=== PATIENT | female | born 1955 | race Caucasian/White ===

== ENCOUNTER 2019-07-08 11:10 | Emergency (ER) | payer MEDICAID, OTHER ==
[~2019-07-08] VITALS: Ht 154.9 cm; Wt 45.4 kg
[~2019-07-08 11:10] MED LIST: LEVAQUIN500 MG ORAL; METHADONE HCL5 MG PO; NKM
[2019-07-08 11:18] VITALS: BP 109/71
[2019-07-08] MEDS ORDERED: CLINDAMYCIN HC300 MG ORAL (11:43)
[2019-07-08 11:50] VITALS: BP 115/76
--- NOTE | 2019-07-08 11:55 | Emergency Room Report ---
History of Present Illness General Chief Complaint: Skin Rash/Abscess Source: Patient Present Illness HPI Disclaimer: Please note that this report is being documented using [employer]AG[employer] technology. This can lead to erroneous entry secondary to incorrect interpretation by the dictating instrument. HPI: 64-year-old female history of heroin abuse presents for left upper extremity swelling and pain. She states she injected heroin recently to the area and developed an abscess which drained last night. Her pain is improved since drainage but still complaining of pain and mild redness. Versus no fevers no nausea vomiting or shortness of breath. No other complaints at this time. PMH: Patient denies PSH: Reviewed Social Hx: Patient takes methadone and uses heroin. Allergies: Coded Allergies: No Known Allergies (Unverified , 01/24/14) COVID-19 Screening Contact w/high risk pt: No Recent Travel to affected area: No Experienced COVID-19 symptoms?: No Patient History Last Menstrual Period: na Nursing Documentation-PMH Past Medical History: No Stated History Hx Cardiac Problems: No Hx Diabetes: No - States MD told her shes borberline 2 years ago Hx Cancer: Yes - Uterine CA at 42 yrs old Hx Gastrointestinal Problems: No Hx Multiple Sclerosis: No Review of Systems All Other Systems: negative except mentioned in HPI Physical Exam Vital Signs Date Time Temp Pulse Resp B/P (MAP) Pulse Ox O2 Delivery O2 Flow Rate FiO2 07/08/19 11:18 98.1 66 18 109/71 98 Room Air Sp02 EP Interpretation: reviewed, normal General Appearance: well appearing, no apparent distress Head: normocephalic, atraumatic Eyes: bilateral eye PERRL, bilateral eye EOMI ENT: hearing grossly normal, moist mucus membranes Neck: full range of motion, supple Respiratory: lungs clear, normal breath sounds, no rhonchi, no respiratory distress, no retraction, no wheezing Cardiovascular #1: normal peripheral pulses, regular rate, rhythm, no murmur Gastrointestinal: non tender, soft, non-distended, no guarding Neurologic: alert, oriented x3, no focal defects Skin: normal color, other - Left upper extremity mildly erythematous, firm and tender with draining abscess noted Medical Decision Making Diagnostic Impression: Primary Impression: Abscess ER Course 64-year-old female history of heroin abuse presents with abscess and cellulitis of the left upper extremity. Abscess was already spontaneously draining on my exam. I do not believe patient required further I&D at this time. She was afebrile no acute distress. Was discharged on oral antibiotics. I recommended avoiding further illicit drug use and IM drug use. Patient expressed understanding the plan. Stable for discharge with outpatient follow-up and return precautions. Last Vital Signs Date Time Temp Pulse Resp B/P (MAP) Pulse Ox O2 Delivery O2 Flow Rate FiO2 07/08/19 11:18 98.1 66 18 109/71 (84) 98 Room Air Status: improved Disposition: HOME, SELF-CARE Condition: Stable Scripts Clindamycin Hcl (CLINDAMYCIN HCL) 300 Mg Capsule 300 MG ORAL THREE TIMES A DAY, #21 CAP Prov: Samir Garcia M.D. 07/08/19 Referrals: [facility] Sena [facility] Patient Instructions: Abscess Additional Instructions: Patient is instructed to follow-up with her primary care doctor, primary care clinic or [facility] in 1 to 2 days. Patient instructed to return for any worsening symptoms or concerns. Disclaimer: Please note that this report is being documented using [employer] technology. This can lead to erroneous entry secondary to incorrect interpretation by the dictating instrument. Samir Garcia M.D. July 08, 2019 11:55
== END 2019-07-08 11:50 | disposition home or self-care (01) ==
LOC: EMR 11:45
DX: L02.414 Cutaneous abscess of left upper limb (principal); F11.90 Opioid use, unspecified, uncomplicated; Z85.42 Personal history of malignant neoplasm of other parts of uterus
CPT/HCPCS: 99282